=== PATIENT | male | born 1985 | race African-American/Black ===

== ENCOUNTER 2017-11-01 14:37 | Emergency (ER) | payer SELFPAY ==
[~2017-11-01 14:37] MED LIST: ISOVUE-370 76%-LOCM 1 ML ONE
[2017-11-01 15:11] LABS: #Eosinphils 0.1 thou/uL (0.0-0.7); #Lymphocytes 1.6 thou/uL (1.20-3.40); #Monocytes 0.4 thou/uL (0.11-0.59); #Neutrophils 6.5 thou/uL (1.40-6.50); %Basophils 0.1 % (0.0-1.0); %Eosinophils 1.4 % (0.0-10.0); %Monocytes 4.6 % (0.0-10.0); %Neutrophils 75.9 % (42.0-75.0); Hemoglobin 15.1 g/dL (14.0-18.0); Mean Corpuscular Hemoglobin 32.5 pg (27.0-31.0); Mean Corpuscular Volume 92.7 fl (80.0-94.0); Mean Platelet Volume 6.9 fL (7.4-10.4); Platelet Count 290 thou/uL (130-400); RBC Distribution Width 11.1 % (11.5-14.5); Red Blood Cell (RBC) Count 4.64 mill/uL (4.70-6.10); White Blood Cell (WBC) Count 8.6 thou/uL (4.8-10.8)
[2017-11-01 15:28] LABS: Bilirubin Negative (Negative); Blood, Urine Negative (Negative); Clarity CLEAR (Clear); Glucose, Urine (Dipstick) Negative (Negative); Leukocyte Negative (Negative); Nitrite Negative (Negative); Protein, Urine (Dipstick) Negative (Neg-Trace); Specific Gravity, Urine 1.025 (1.002-1.036)
[2017-11-01 15:34] LABS: ALT (SGPT) 35 U/L (8-55); AST (SGOT) 32 U/L (5-34); Albumin 4.4 g/dL (3.5-5.0); Alkaline Phosphatase 67 U/L (40-150); Anion Gap 12 mmol/L (10-20); BUN (Urea Nitrogen) 17 mg/dL (8.9-20.6); Bilirubin, Total 0.4 mg/dL (0.2-1.2); Calc. Creatinine Clearance 0 mL/min (70-130); Calcium 9.3 mg/dL (7.8-10.44); Carbon Dioxide 27 mmol/L (22-29); Chloride 104 mmol/L (98-107); Estimated GFR-MDRD 85; Globulin 2.6 g/dL (2.4-3.5); Glucose 99 mg/dL (70-105); Lipase 30 U/L (8-78); Sodium 139 mmol/L (136-145)
--- NOTE | 2017-11-01 15:41 | CT ---
CT ABDOMEN AND PELVIS: Date: 11/01/17 COMPARISON: None. HISTORY: Right lower quadrant pain with nausea, vomiting, and chills. TECHNIQUE: Serial axial CT imaging at 5 mm intervals from the lung bases through the pubic symphysis with IV con trast. Coronal reformatted imaging obtained. FINDINGS: The imaged lung bases are unremarkable. There is no free intraperitoneal air noted. The lack of oral contrast limits assessment of the bowel. The liver, spleen, pancreas, adrenal glands , and kidneys are unremarkable. There is no evidence for bowel inflammatory change or obstruction. Secondary to a paucity of intra-ab dominal fat and lack of oral contrast, the appendix cannot be visualized, and thus cannot be accurate ly evaluated. Vascular structures appear patent. No lymphadenopathy noted. No acute osseous abnormality. IMPRESSION: No acute findings are seen. The appendix cannot be visualized as detailed above. If appendicitis ele ins a clinical concern, follow-up examination with oral and/or rectal contrast may be beneficial. POS: [facility]
== END 2017-11-01 15:55 | disposition home or self-care (01) ==
LOC: ERS 14:37
DX: R10.31 Right lower quadrant pain (principal); J45.909 Unspecified asthma, uncomplicated; F17.210 Nicotine dependence, cigarettes, uncomplicated; Z71.6 Tobacco abuse counseling
CPT/HCPCS: 36415; 74177; 80053; 81003; 83690; 85025; 99406

== ENCOUNTER 2017-11-17 21:37 | Emergency (ER) | payer SELFPAY ==
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
== END 2017-11-17 22:38 | disposition home or self-care (01) ==
LOC: ERS 21:37
DX: S62.665A Nondisplaced fracture of distal phalanx of left ring finger, initial encounter for closed fracture (principal); F17.210 Nicotine dependence, cigarettes, uncomplicated; W31.9XXA Contact with unspecified machinery, initial encounter
CPT/HCPCS: 26750; 99406

== ENCOUNTER 2018-02-11 08:38 | Emergency (ER) | payer SELFPAY ==
[2018-02-11 09:07] LABS: Bilirubin Negative (Negative); Blood, Urine Negative (Negative); Clarity Slightly Cloudy (Clear); Glucose, Urine (Dipstick) Negative (Negative); Leukocyte Negative (Negative); Nitrite Negative (Negative); Protein, Urine (Dipstick) Negative (Neg-Trace); Specific Gravity, Urine 1.015 (1.005-1.030); Urobilinogen 0.2 mg/dL (0.2-1.0); pH, Urine 7.5 (5.0-9.0)
== END 2018-02-11 09:21 | disposition home or self-care (01) ==
LOC: SCSER 08:38
DX: M54.5 Low back pain (principal); J45.909 Unspecified asthma, uncomplicated
CPT/HCPCS: 81003; 99283

== ENCOUNTER 2020-09-14 11:58 | Emergency (ER) | payer SELFPAY ==
[2020-09-14 17:26] LABS: SARS-CoV-2 MS2 Positive; SARS-CoV-2 N Gene Negative; SARS-CoV-2 S Gene Negative; SARS-CoV-2 by NAA Not Detected (NotDetected); SARS-CoV-2 orf1ab Negative
== END 2020-09-14 12:20 | disposition home or self-care (01) ==
LOC: ERS 11:58
DX: J02.9 Acute pharyngitis, unspecified (principal); R09.89 Other specified symptoms and signs involving the circulatory and respiratory systems; Z20.822 Contact with and (suspected) exposure to COVID-19
CPT/HCPCS: 87635; 99283; U0003; U0005

== ENCOUNTER 2021-05-16 18:23 | Emergency (ER) | payer SELFPAY ==
[2021-05-17 08:31] LABS: SARS-CoV-2 PCR by NAA Not Detected (NotDetected)
== END 2021-05-16 19:47 | disposition home or self-care (01) ==
LOC: ERS 18:23
DX: Z20.822 Contact with and (suspected) exposure to COVID-19 (principal)
CPT/HCPCS: 99283; U0003; U0005